=== PATIENT | female | born 1990 | race Hispanic/Latino ===

== ENCOUNTER 2022-07-02 22:25 | Emergency (ER) | payer OTHER ==
[~2022-07-02] VITALS: Ht 149.9 cm; Wt 77.1 kg
[2022-07-02] MEDS ORDERED: KETOROLAC 60 MG VIAL (30MG/ML) IM ONE ×2 (22:57→23:00)
[2022-07-02 23:00] LABS: BASOPHILS % (AUTO) 0.6 % (0.0-5.0); EOSINOPHILS % (AUTO) 1.4 % (0.0-8.0); HEMATOCRIT 40.2 % (36-48); LYMPHOCYTES % (AUTO) 30.1 % (21.0-51.0); MEAN CORPUSCULAR HEMOGLOBIN 31.8 pg (27.0-33.0); MEAN CORPUSCULAR HGB CONC 35.1 g/dL (32.0-36.0); MEAN CORPUSCULAR VOLUME 90.5 fL (79-99); MONOCYTES % (AUTO) 8.3 % (3.0-13.0); NEUTROPHILS % (AUTO) 59.3 % (40.0-77.0); PLATELET COUNT (AUTO) 196 K/uL (130-400); RED BLOOD CELL COUNT(AUTO) 4.44 MIL/uL (4.00-5.50); RED CELL DISTRIBUTION WIDTH 11.9 % (11.0-15.5); WHITE BLOOD COUNT (AUTO) 9.6 K/uL (4.8-10.8)
[2022-07-02 23:08] LABS: HCG,QUALITATIVE URINE NEGATIVE (NEGATIVE)
[2022-07-02 23:11] LABS: APPEARANCE,URINE CLEAR (CLEAR); BILIRUBIN,URINE NEGATIVE (NEGATIVE); COLOR,URINE COLORLESS (YELLOW); GLUCOSE, URINE (UA) >=1000 mg/dL (NEGATIVE); KETONES,URINE NEGATIVE (NEGATIVE); LEUKOCYTE ESTERASE ,URINE NEGATIVE Leu/uL (NEGATIVE); NITRATE,URINE NEGATIVE (NEGATIVE); OCCULT BLOOD,URINE NEGATIVE (NEGATIVE); PH,URINE 5.5 (5.0-8.0); PROTEIN,URINE NEGATIVE (NEGATIVE); UROBILINOGEN,URINE 0.2 mg/dL (0.2-1.0)
[2022-07-02 23:12] LABS: POTASSIUM 3.7 mmol/L (3.5-5.1)
[2022-07-02 23:12] LABS: BACTERIA,URINE RARE /HPF (None Seen); MUCUS,URINE RARE LPF (None Seen); SQUAMOUS EPITHELIAL CELL,UR RARE /HPF (0-2); YEAST,URINE BUDDING RARE /HPF (None Seen)
[2022-07-02 23:17] LABS: ALBUMIN 3.6 g/dL (3.5-5.0); TOTAL PROTEIN, SERUM 8.3 g/dL (6.0-8.3)
[2022-07-02] MEDS ORDERED: INSULIN HUMULIN R 100 UNIT/ML 3ML ONE (23:21)
[2022-07-02] MEDS ORDERED: IBUP-2071 PO (23:28)
[2022-07-02] MEDS ORDERED: INSULIN HUMULIN R 100 UNIT/ML 3ML IV ONE (23:30)
[2022-07-02] MEDS ORDERED: 0.9% NACL 500ML IV.SOLN 500 ML IV SCH (23:30)
[2022-07-02 23:57] VITALS: BP 115/72
== END 2022-07-03 00:20 | disposition home or self-care (01) ==
LOC: EDH 22:25
DX: E11.65 Type 2 diabetes mellitus with hyperglycemia (principal); E87.1 Hypo-osmolality and hyponatremia; E66.9 Obesity, unspecified; Z79.1 Long term (current) use of non-steroidal anti-inflammatories (NSAID); Z68.34 Body mass index [BMI] 34.0-34.9, adult
CPT/HCPCS: 99284; 96374; 80053; 83690; 85025; 81001; 81025; 36415; 96372; J1815; J7040; J1885